=== PATIENT | female | born 1945 | race Caucasian/White ===

== ENCOUNTER → 2016-12-10 | Outpatient (CLI) | payer MEDICARE, BC ==
[~2016-12-10] MED LIST: AMOX1TAB15 PO; ASPI325T PO; ATOR10TA64 PO; CARV12.52 PO; CLOP75TA33 PO; DOCU-175 PO; ENAL5TAB PO; FISH1CAP59 PO; FLUC100T8 PO; FLUT10SP EA NOSTRIL; FOLI1TAB15 PO; FURO20TA4 PO; GABA300C PO; IOHEXOL 300 MG/ML 100ml INJECTION ONE; MENT71OI TOP; METF500T4 PO; METH2.5T6 PO; MICO15CR4 TOP; MORP15TA78 PO; MULT-1243; NAPR500T3 PO; NORMAL SALINE 100 ML ONE; OXYC-532 PO; RANI150T7 PO; SALINE FLUSH 10ml SYRINGE ONE; TRIA15CR3 TOP; VIT B; VIT B12
--- NOTE | 2016-12-10 11:09 | DI ---
Indication: ITS.REASON: C21.1; R91.8; Z85.3 PERSONAL HISTORY OF BREAST CA PROCEDURE: CT CHEST/ABD/PELVIS WC: Encounter: Subsequent Comparison: CT chest, abdomen and pelvis dated April 15, 2016 and August 28, 2015 and June 15, 2014 Technique: Axial CT images were performed through the chest, abdomen and pelvis after the administration of intravenous contrast. Coronal and sagittal two-dimensional reformats. Automated Exposure Control and Iterative Reconstruction dose reducing techniques were utilized. Contrast: Omnipaque 300 100 mL Findings: Chest: Stable small right upper lobe pulmonary nodules. These are unchanged since at least 2014. Postoperative changes in the left breast with probable radiation fibrotic changes in the left apex. No consolidative pneumonia. No pleural effusion or pneumothorax. The central airways are patent. No axillary or mediastinal adenopathy. Surgical clips in the left axilla. Stable small paratracheal lymph nodes. Heart size is unchanged. No pericardial effusion. Abdomen/pelvis: The liver appears normal. Gallbladder is surgically absent. The spleen, pancreas and adrenal glands are within normal limits. Right kidney is normal. Multiple stable low-attenuation left renal lesions with the largest involving the superior pole medially on image #25 measuring 2 cm in diameter. These are unchanged dating back to 2014. No enhancing renal masses. No abdominal or pelvic lymphadenopathy. Stable right common iliac artery aneurysm. Scattered atherosclerotic plaque. The bladder is normal. Uterus is surgically absent. No free fluid. Sigmoid diverticulosis without acute diverticulitis. The appendix is normal. Bone windows are stable without lytic or blastic osseous lesion. Impression: Stable exam without evidence of metastatic disease in the chest, abdomen or pelvis. .
== END ==
LOC: IMA 09:31
PROVIDERS: ATTEND Internal Medicine Hematology & Oncology
DX: C21.1 Malignant neoplasm of anal canal (principal); R91.8 Other nonspecific abnormal finding of lung field; Z85.3 Personal history of malignant neoplasm of breast
CPT/HCPCS: 71260; 74177; J7050; Q9967

== ENCOUNTER → 2016-12-16 | Outpatient (CLI) | payer MEDICARE, BC ==
[~2016-12-16] MED LIST changes: -IOHEXOL 300 MG/ML 100ml INJECTION ONE; -NORMAL SALINE 100 ML ONE; -SALINE FLUSH 10ml SYRINGE ONE
[2016-12-16 14:13] LABS: BASOPHILS % (AUTO) 0.2 % (0-2); EOSINOPHILS # (AUTO) 0.3 T/MM3 (0-0.5); EOSINOPHILS % (AUTO) 4.3 % (0-4); HCT - HEMATOCRIT 39.7 % (36-46); HGB - HEMOGLOBIN 12.9 GM/DL (12-16); IMMATURE GRANULOCYTE # (AUTO) 0.01 T/MM3 (0.00-0.03); IMMATURE GRANULOCYTE % (AUTO) 0.2 % (0.0-0.5); LYMPHOCYTES % (AUTO) 14.9 % (23-45); MEAN CORPUSCULAR HGB 30.6 UUG (26-34); MEAN CORPUSCULAR HGB CONC(MCHC 32.5 GM/DL (31-37); MEAN CORPUSCULAR VOLUME 94.1 UM3 (80-100); MEAN PLATELET VOLUME 8.8 UM3 (9.4-12.4); MONOCYTES # (AUTO) 0.5 T/MM3 (0-0.8); MONOCYTES % (AUTO) 7.8 % (0-9.0); NEUTROPHILS #(AUTO)-ABSOLUTE 4.7 T/MM3 (1.8-7.7); NEUTROPHILS % (AUTO) 72.6 % (33-66); RED BLOOD COUNT 4.22 M/MM3 (4.00-5.20); WBC - WHITE BLOOD COUNT 6.4 T/MM3 (4.5-11.0)
[2016-12-16 14:24] LABS: ALBUMIN 4.2 G/DL (3.5-5.0); ALBUMIN/GLOBULIN RATIO 1.4 RATIO (1.1-2.2); ALKALINE PHOSPHATASE 98 U/L (38-126); ALT (SGPT) 31 U/L (9-52); ANION GAP 12 MEQ/L (5-15); AST (SGOT) 30 U/L (14-36); BUN/CREATININE RATIO 43 RATIO (6-26); CALCIUM 9.4 MG/DL (8.4-10.2); CHLORIDE 104 MEQ/L (98-107); CO2 - CARBON DIOXIDE 28 MEQ/L (22-30); CREATININE 0.6 MG/DL (0.7-1.2); GLOMERULAR FILTRATION RATE 99; GLUCOSE 105 MG/DL (65-110); LDH 461 U/L (313-618); MAGNESIUM 2.4 MG/DL (1.6-2.3); POTASSIUM 4.4 MEQ/L (3.6-5); SODIUM 144 MEQ/L (134-144); TOTAL PROTEIN 7.1 G/DL (6.3-8.2)
[2016-12-16 15:31] LABS: CA 27-29 CALCULATED 18.48 U/ML (0-37.7)
== END ==
LOC: LAB 13:57
PROVIDERS: ATTEND Internal Medicine Hematology & Oncology
DX: C21.1 Malignant neoplasm of anal canal (principal); R91.8 Other nonspecific abnormal finding of lung field; Z85.3 Personal history of malignant neoplasm of breast
CPT/HCPCS: 36415; 80053; 82378; 83615; 83735; 85025; 86300

== ENCOUNTER → 2017-02-11 | Outpatient (CLI) | payer MEDICARE, BC | LOC: WC.BC 10:38 | PROVIDERS: ATTEND Internal Medicine Hematology & Oncology | DX: Z12.31 Encounter for screening mammogram for malignant neoplasm of breast (principal); N64.59 Other signs and symptoms in breast; C50.912 Malignant neoplasm of unspecified site of left female breast; Z08 Encounter for follow-up examination after completed treatment for malignant neoplasm | CPT/HCPCS: 77063; G0202 ==